=== PATIENT | male | born 1990 | race Caucasian/White ===

== ENCOUNTER 2016-06-29 13:21 | Emergency (ER) | payer OTHER ==
[2016-06-29 13:27] VITALS: BP 150/80; PULSE 90; TEMP 98.3; BMI 25.7
--- NOTE | 2016-06-29 14:05 | PDOC ---
History of Present Illness - General Chief Complaint: Injury Stated Complaint: SPRAINED LT ANKLE Time Seen by Provider: 06/29/16 13:32 History Source: Patient Exam Limitations: No Limitations - History of Present Illness Initial Comments: 06/29/16 13:59 states last night while at a concert, tripped and inverted his left ankle. Complaints of pain, swelling primarily to the lateral aspect of his left foot and ankle. And Motrin with minimal relief Occurred: reports: yesterday Pain Location: reports: none, lower extremity (left ankle ) Modifying Factors: improves with: cold therapy Loss of Consciousness: no loss of consciousness Associated Symptoms (Fall): denies symptoms, trouble walking Past History - Travel Traveled outside of the country in the last 30 days: No Close contact w/someone who was outside of country & ill: No - Past Medical History Allergies/Adverse Reactions: Allergies Allergy/AdvReac Type Severity Reaction Status Date / Time No Known Allergies Allergy Verified 06/29/16 13:27 Home Medications: Ambulatory Orders NK [No Known Home Medication] 06/29/16 - Psycho/Social/Smoking Cessation Hx Suicidal Ideation: No Smoking History: Never smoked Hx Alcohol Use: No Drug/Substance Use Hx: No Trauma Specific PMHX - Complaint Specific PMHX Back Injury: No Neck Injury: No Review of Systems - Review of Systems Able to Perform ROS?: Yes Is the patient limited Turkish proficient: Yes Constitutional: No: See HPI HEENTM: No: See HPI Musculoskeletal: Yes: Symptoms Reported, See HPI, Joint Pain, Joint Swelling Integumentary: Yes: Symptoms Reported, See HPI, Bruising All Other Systems: Reviewed and Negative *Physical Exam - Vital Signs Last Vital Signs Temp Pulse Resp BP Pulse Ox 98.3 F 90 20 150/80 98 06/29/16 13:25 06/29/16 13:25 06/29/16 13:25 06/29/16 13:25 06/29/16 13:25 - Physical Exam General Appearance: Yes: Nourished, Appropriately Dressed, Apparent Distress, Mild Distress Neck: positive: Supple Respiratory/Chest: positive: Lungs Clear, Normal Breath Sounds Gastrointestinal/Abdominal: positive: Soft Extremity: positive: Normal Capillary Refill, Normal Inspection, Normal Range of Motion, Tender Integumentary: positive: Normal Color, Ecchymosis (lateral aspect of left mid/ foot/ no point tenderness to medial or lateral malleolus, some bruising to the fifth metatarsal and tenderness, no navicular tenderness. Negative squeeze test. Neurovascular intact to toes), Bruising Neurologic: positive: trestleman II-XII NML intact, Fully Oriented, Alert, Normal Mood/ Affect, Normal Response, Motor Strength 09/09 ED Treatment Course - RADIOLOGY Radiology Studies Ordered: Category Date Time Status ANKLE-LEFT [RAD] Stat Radiology 06/29/16 13:59 Ordered Progress Note - Progress Note Progress Note: NO Fractures or dislocations x-ray .Left ankle sprain, Efrain, Aircast and crutches provided *DC/Admit/Observation/Transfer Diagnosis at time of Disposition: Ankle sprain Qualifiers: Encounter type: initial encounter Involved ligament of ankle: unspecified ligament Laterality: left Qualified Code(s): S93.402A - Sprain of unspecified ligament of left ankle, initial encounter - Discharge Dispostion Disposition: HOME Condition at time of disposition: Stable Admit: No - Referrals Referrals: Rhys Garcia MD [Staff Physician] - - Patient Instructions Printed Discharge Instructions: DI for Ankle Sprain Additional Instructions: Rest, ice to area on and off for 15 minutes 4-6 times a day Avoid heavy lifting or exercise until pain and swelling is resolved or until further directed Keep area highly elevated to reduce swelling Use splints/Efrain wrap as directed Followup with orthopedist in one to 2 days if not improving, if significantly improved may wait one week for followup with orthopedist May use ibuprofen 2-200 mg tablets every 6 hours as needed for pain - Post Discharge Activity Work/School Note: Back to Work
== END 2016-06-29 14:23 | disposition home or self-care (01) ==
LOC: JERFT 13:21
PROC: 2W3MX1Z Immobilization of Left Lower Extremity using Splint (ICD-10-PCS; principal; 2016-06-29)
DX: S93.402A Sprain of unspecified ligament of left ankle, initial encounter (principal); W01.0XXA Fall on same level from slipping, tripping and stumbling without subsequent striking against object, initial encounter; Y93.82 Activity, spectator at an event; Y92.29 Other specified public building as the place of occurrence of the external cause; Y99.8 Other external cause status
CPT/HCPCS: 73610-TC-LT; 99281-25

== ENCOUNTER 2020-01-15 05:02 | Day surgery (SDC) | payer BC ==
[2020-01-14 14:49] VITALS: BMI 25.7
[~2020-01-15 05:02] MED LIST: BUPIVACAINE HCL/PF 0.5% (5 MG/ML) 30 ML VIAL IJ ONE; LIDOCAINE HCL 1%, 10 MG/ML (20ML VIAL) NR ONE
[2020-01-15] MEDS ORDERED: ROPIVACAINE HCL 0.5% 30ML VIAL ONE (08:39)
[2020-01-15] MEDS ORDERED: MIDAZOLAM HCL 2 MG/2 ML SINGLE DOSE VIAL ONE ×3 (08:40→10:02)
--- NOTE | 2020-01-15 09:43 | HP ---
[facility]ellite [facility] - Chief Complaint Chief Complaint: left elbow pain - Past Medical History Allergies/Adverse Reactions: Allergies Allergy/AdvReac Type Severity Reaction Status Date / Time No Known Allergies Allergy Verified 01/15/20 07:52 - Current Medications Current Medications: Home Medications Medication Instructions Recorded Hydrocodone/Acetaminophen 1 each PO Q6H #20 tablet MDD 4 01/15/20 [Hydrocodone-Acetamin 5-325 mg] Satellite Physical Exam - Physical Examination Vital Signs: Vital Signs Period Temp Pulse Resp BP Sys/Hill Pulse Ox Last 24 Hr 97.8 F 75 16 129/70 98-98 General Appearance: Well Nourished, Well Developed, Alert & Oriented x3 ENT: Clear Lung: Normal air movement Extremities: Other (left elbow- + kip def, + swelling, + ttp, full rom, decr strength in supination, nvi) Neurological: Intact, Alert, Oriented Satellite Impression/Plan - Impression/Plan Impression: left distal biceps tendon rupture Operative Procedure: left distal biceps tendon repair Date to be Performed: 01/15/20
[2020-01-15] MEDS ORDERED: LIDOCAINE HCL 1%, 10 MG/ML (20ML VIAL) ONE (10:18)
[2020-01-15] MEDS ORDERED: ceFAZolin 2 GRAM PREMIX BAG IVPB ONE (10:30)
[2020-01-15] MEDS ORDERED: PROPOFOL 20 ML ONE (10:36)
[2020-01-15] MEDS ORDERED: ONDANSETRON 4 MG/2 ML VIAL IVPUSH PRN (11:33)
[2020-01-15] MEDS ORDERED: oxyCODONE HCL 5 MG TABLET PO PRN ×2 (11:33)
--- NOTE | 2020-01-15 11:37 | OP ---
Operative Note - Note: Operative Date: 01/15/20 ([facility]) Pre-Operative Diagnosis: left distal biceps tendon tear Operation: left distal biceps tendon repair Post-Operative Diagnosis: Same as Pre-op Surgeon: Laci Corbett Mosaic Layer: Apollo Hunt Anesthesia: General, Local Estimated Blood Loss (mls): 0 (tourniquet)
[2020-01-15] MEDS ORDERED: LACTATED RINGERS SOLUTION 1,000 ML IV SCH (11:45)
[2020-01-15] MEDS ORDERED: MEPERIDINE HCL 25 MG/ML VIAL ONE (11:53)
[2020-01-15] MEDS ORDERED: MEPERIDINE HCL 25 MG/ML VIAL IVPUSH ONE (13:05)
[2020-01-15] MEDS ORDERED: ONDANSETRON 4 MG/2 ML VIAL ONE (13:18)
[2020-01-15] MEDS ORDERED: ONDANSETRON 4 MG/2 ML VIAL IVPB ONE (13:20)
[2020-01-15 13:33] VITALS: TEMP 97.7
[2020-01-15] MEDS ORDERED: ACETAMINOPHEN 1000 MG/100 ML VIAL (NON FORMULARY) IVPB ONE (14:00)
[2020-01-15] MEDS ORDERED: ACETAMINOPHEN INJECTION 100 ML IVPB ONE (14:01)
[2020-01-15] MEDS ORDERED: PROMETHAZINE HCL 25 MG/1 ML VIAL ONE (14:35)
[2020-01-15] MEDS ORDERED: PROMETHAZINE HCL 25 MG/1 ML VIAL IVPB ONE (14:40)
[2020-01-15] MEDS ORDERED: PROMETHAZINE HCL 25 MG/1 ML VIAL IVPUSH ONE (15:56)
[2020-01-15 17:30] VITALS: BP 121/85; PULSE 76
--- NOTE | 2020-01-15 20:02 | OP ---
DATE OF OPERATION: 01/15/2020 PREOPERATIVE DIAGNOSIS: Left distal biceps tendon complete tear. POSTOPERATIVE DIAGNOSIS: Left distal biceps tendon longitudinal tear, sprain, and partial tear. SURGERY: Open left distal biceps tendon repair. SURGEON: Laci Corbett MD MANAGER SAS: LENNY Schwartz ANESTHESIOLOGISTS: ISSAC Lopez and Alex Green MD ANESTHESIA: Left interscalene block with LMA anesthesia. DRAINS: None. COMPLICATIONS: None. SPECIMEN: None. FLUID REPLACEMENT: Plasma-Lyte 700 mL. This patient is a 29-year-old male with a preoperative diagnosis of a left distal biceps tendon rupture. The MRI was reviewed preoperatively and showed a partial tear of the medial insertion of the left distal biceps tendon, as well as a sprain/partial tear of the musculotendinous junction. The patient continued to present clinically as if he had a complete distal biceps tendon rupture, and therefore, the decision was made to do an exploratory surgery and repair if necessary. The patient was brought to the operating room. Peripheral IV placed. IV sedation given. Two grams of IV Ancef were given. A left interscalene block was performed. LMA anesthesia was induced. He was placed onto the operating room table in the supine position. Left upper extremity had a tourniquet applied to the left upper arm. Left upper extremity was prepped and draped in sterile fashion, elevated, exsanguinated with an Esmarch bandage. Tourniquet inflated to 250 mmHg. A transverse incision was marked out and made within the antecubital fossa crease with a number-15 scalpel blade. Subcutaneous hemostasis was achieved with the bipolar cautery. Deeper dissection was done with the Littler scissors. Two large superficial veins were identified and retracted laterally and medially with blunt-tipped Weitlaner retractors. There was a small amount of posttraumatic inflammatory fluid which was evacuated. The distal biceps tendon was directly visualized at this point and looked to be intact. I then dissected circumferentially with a blunt-tipped, curved Cox elevator, and at one point, about 10 mL of additional posttraumatic inflammatory fluid was evacuated. This was on the lateral margin of the biceps tendon and biceps tendon sheath. Because the tendon seemed to be intact distally, I did careful dissection with the Littler scissors around it as well as with blunt dissection with my index finger. I was able to feel the distal biceps tendon bifurcate around a neurovascular bundle. I did careful distal dissection around the 2 limbs of the distal biceps tendon and was able to feel them and directly visualize them going down along the normal path to the radial tuberosity. The arm was put through a range of motion, and I could feel their insertion in the radial tuberosity intact. I have seen this before where the biceps tendon torn and then scarred back down to the radial tuberosity and the insertion was actually quite weak. In those other cases, I was able to pull up the distal biceps tendon, and it came off the radial tuberosity quite easily. In this case, I pulled quite hard on the tendon itself using my finger and also using a Judy clamp (not around the tendon, but under it), and I was unable to tear the tendon off the radial tuberosity. This told me that the insertion was actually quite good and not torn. In addition, when I pulled up on the tendon, the elbow went into flexion and the forearm supinated quite well. The area was copiously irrigated and washed out, again explored both visually and feeling it with my finger. I pulled up on both limbs, and there seemed to be partial tears, not a complete tear that far distal. In addition, I found a longitudinal split tear of the lateral aspect of the distal biceps tendon starting at the point of the musculotendinous junction and moving down further distally, about 4 inches long. I believe this is what the radiologist saw on the MRI as the sprain of the biceps tendon at the level of the musculotendinous junction. I did additional exploration, additional pulling, and determined that the distal-most biceps tendon was still inserted into the radial tuberosity and that portion did not need to be fixed. I, therefore, put in 4 single interrupted 0 Vicryl sutures, repairing this longitudinal split tear of the lateral aspect of the distal biceps tendon. This came together quite nicely. The rest of it was left intact, and therefore, I did not do a formal, standard, 2-incision, distal-most biceps tendon repair into the radial tuberosity. It was an longitudinal tear that I repaired. No second incision was necessary. The area was copiously irrigated and washed out. Closure was done with 4-0 undyed Vicryl in the deep dermal layer. Final skin reapproximation was done with a running subcuticular 4-0 Biosyn stitch. The area was then washed and dried, covered with Steri-Strips, 4-x-4 gauze, Webril, and an Efrain bandage. No splint would be utilized. Total tourniquet time was 35 minutes. There were no complications during the case. The patient tolerated the procedure well, was brought to the ambulatory recovery room in stable condition. Liliana [id number]
== END 2020-01-15 16:35 | disposition home or self-care (01) ==
LOC: JASU-SURG 05:02
PROVIDERS: ATTEND Orthopaedic Surgery
PROC: 0LM20ZZ Reattachment of Left Shoulder Tendon, Open Approach (ICD-10-PCS; principal; 2020-01-15 09:30)
DX: S46.212A Strain of muscle, fascia and tendon of other parts of biceps, left arm, initial encounter (principal); X58.XXXA Exposure to other specified factors, initial encounter; Y93.9 Activity, unspecified; Y92.9 Unspecified place or not applicable
CPT/HCPCS: 94760; J0131